=== PATIENT | male | born 1990 | race Two or more races ===

== ENCOUNTER 2018-12-02 23:08 | Emergency (ER) | payer OTHER ==
[~2018-12-02] VITALS: Ht 185.4 cm; Wt 105.9 kg
[2018-12-02 23:13] VITALS: BP 141/86
[2018-12-02] MEDS ORDERED: DIPH,PERTUSS(ACELL),TET VAC/PF 0.5 ML IM-VACC ONE ×2 (23:30→23:32)
[2018-12-02] MEDS ORDERED: LIDOCAINE-MPF 1%, 5ML INFIL ONE (23:30)
[2018-12-02] MEDS ORDERED: LIDOCAINE-MPF 1%, 5ML ONE (23:32)
== END 2018-12-03 00:16 | disposition home or self-care (01) ==
LOC: ED 23:59
DX: S61.211A Laceration without foreign body of left index finger without damage to nail, initial encounter (principal); W26.0XXA Contact with knife, initial encounter; Y93.89 Activity, other specified; Y92.009 Unspecified place in unspecified non-institutional (private) residence as the place of occurrence of the external cause; Y99.8 Other external cause status
CPT/HCPCS: 12041; 90471; 90715